=== PATIENT | female | born 2005 | race Caucasian/White ===

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

== ENCOUNTER 2024-01-19 14:28 | Emergency (ER) | payer BC, SELFPAY ==
[2024-01-19] VITALS (26 sets, daily range): BP systolic 110–173; BP diastolic 63–115; PULSE 75–115; RESP 11–22; TEMP 36.3; O2SAT 96–100
--- NOTE | 2024-01-19 14:29 | ED.NAVMDI ---
HPI - Nausea/Vomiting/Diarrhea General Chief complaint: Nausea/Vomiting/Diarrhea Stated complaint: extreme nausea Time Seen by Provider: 01/19/24 14:29 Source: patient Mode of arrival: ambulatory Limitations: no limitations History of Present Illness HPI Narrative: Ck is a 18-year-old female patient presenting to the clinic with complaints of chronic nausea for the past 8 months. Reports the nausea has gotten worse over the last 3 days and she is now complaining of dizziness. She denies any shortness of breath, chest pain, or abdominal pain at this time. Had an abdominal ultrasound on December 08 and it was negative for any abnormalities. Denies any recreational drug use. Related Data Allergies Allergy/AdvReac Type Severity Reaction Status Date / Time No Known Allergies Allergy Mild Verified 01/19/24 14:41 Review of Systems Review of Systems: Pertinent positives per HPI. Patient denies any fever, chills, rash, headache, visual changes, cough, runny nose, sore throat, shortness of breath, chest pain, palpitations, vomiting, diarrhea, constipation, abdominal pain, or any urinary issues. [facility] Past Medical History Medical History Encounter for immunization (07/23/19) Osteomyelitis, unspecified PANDAS (pediatric autoimmune neuropsychiatric disease associated with streptococcal infection) Panic disorder without agoraphobia Patellar tendonitis of left knee Primary dysmenorrhea Pustulosis palmaris et plantaris Strep pharyngitis Sunburn, blistering Family History Family History Other Family history of malignant neoplasm of breast Social History Social History Smoking status: Never smoker Second hand tobacco smoke exposure: No Alcohol intake: never Substance use: never Substance use type: does not use Do You Feel Safe in your Home?: Yes Lack of Transportation: No Lack of Food: Never True Current Housing: I Have Housing Concerned About Future Housing: No Difficulty Paying Gas/Electric Bills: No Difficulty Paying for Meds: No Currently Unemployed: No Education: High School Diploma/GED Living arrangements: with family Comments At the time of my signature, I reviewed and agree with the nursing past medical, surgical, social, and family history. There is no relevant family history pertinent to the patient complaint. Exam Narrative: General: Well-developed, well nourished, in no apparent distress Head: Normocephalic, atraumatic Eyes: Pupils equally round and reactive to light bilaterally, EOM intact, sclera and conjunctive clear, no discharge, lids normal Ears: TMs intact and clear, ear canals clear, no drainage, grossly hearing normal. Nose: Nares patent, clear discharge, no inflammation, no sinus tenderness. Mouth: Oropharynx mildly red without lesions or masses, good dentition, MMM. Neck: Supple, trachea midline, no enlargement of anterior or posterior cervical nodes, no thyroid masses or goiter palpable. Cardio: Regular rate and rhythm, s1 and s2 normal, no murmur appreciated. Resp: Clear to auscultation bilaterally anteriorly and posteriorly, no rhonchi, rales, wheezing or rubs Abdomen: Soft, pliable, bowel sounds present in all quadrants, non-tender to palpation, no organomegly, no CVAT tenderness. Course Course Emergency Course: Portions of this record may have been created with voice recognition software. Vital Signs Vital signs: Vital signs reviewed MDM - Nausea/Vomiting/Diarrhea MDM Narrative Medical decision making narrative: At the time of visit patient is resting comfortably on the exam table. Patient appears to be nontoxic. EKG: EKG shows normal sinus rhythm with heart rate of [address] beats per minute no ST elevation, depression, or T-wave inversion. Labs: CBC shows white blood
[2024-01-19 14:56] LABS: Appearance Urine Clear (Clear); Bilirubin Urine Negative (Negative); Blood Urine Negative (Negative); Color Urine Yellow (Yellow); Glucose Urine UA Negative (Negative); Ketones Urine 2+ mg/dL (Negative); Leukocyte Esterase Ur Negative LEU/UL (Negative); Nitrate Urine Negative (Negative); Protein Urine Negative (Negative); Specific Grav Ur 1.013 (1.001-1.035); pH Urine 6.5 (5.0-9.0)
--- NOTE | 2024-01-19 14:58 | ECG_ITS ---
SEE SCANNED COPY FOR CONFIRMED REPORT MTDD
[2024-01-19 15:08] LABS: Add Urine Microscopic? NO
[2024-01-19] MEDS: PROMETHAZINE HCL 25 MG/ML AMPUL 12.5 MG IV PUSH (15:12)
[2024-01-19] MEDS: SODIUM CHLORIDE 0.9% IV 1,000 ML 999 ML IV CONT ×2 (15:12→17:17)
[2024-01-19 15:16] LABS: Basophils Absolute Auto 0.1 K/mm3 (0.0-0.1); Basophils Percent Auto 0.5 % (0.2-1.2); Eosinophils Absolute Auto 0.1 K/mm3 (0-0.3); Eosinophils Percent Auto 0.5 % (0-4.4); Hematocrit 45.2 % (37.0-47.0); Hemoglobin 15.4 g/dL (12.0-15.0); Immature Granulocyte Absolute 0.02 K/mm3 (0.00-0.031); Immature Granulocyte Percent A 0.2 % (0-0.5); Lymphocytes Absolute Auto 2.23 K/mm3 (0.9-3.2); Lymphocytes Percent Auto 22.2 % (18.3-44.2); Mean Corpuscular HGB Conc 34.1 g/dl (32-36); Mean Corpuscular Hemoglobin 30.5 pg (26-34); Mean Corpuscular Volume 89.5 fl (80-100); Mean Platelet Volume 10.5 fl (7.4-10.4); Monocytes Absolute Auto 0.8 K/mm3 (0.1-0.6); Monocytes Percent Auto 8.1 % (2.6-8.5); Neutrophils Absolute Auto 6.9 K/mm3 (1.3-6.7); Neutrophils Percent Auto 68.5 % (45.5-73.1); Platelet Count Result 389 k/mm3 (150-375); Red Blood Count 5.05 M/mm3 (4.2-5.4); Red Cell Distribution Width 12.5 % (11.5-14.5); White Blood Count 10.1 K/mm3 (4.5-10.0)
[2024-01-19 15:24] LABS: Alanine Aminotransferase 43 U/L (6-35); Albumin Level 5.1 g/dL (3.7-5.6); Alkaline Phosphatase 66 U/L (45-116); Anion Gap 11 mmol/L (4-12); Aspartate Amino Transferase 32 U/L (14-36); Bilirubin,Total 0.7 mg/dL (0.2-1.3); Blood Urea Nitrogen 7 mg/dL (8-21); Calcium 10.2 mg/dL (8.9-10.7); Carbon Dioxide 25 mmol/L (22-30); Chloride 102 mmol/L (98-107); Estimated CRCL calculation 155 ml/min; Estimated Glomerular Filt Rate > 60; Glucose 112 mg/dL (65-110); Magnesium 1.9 mg/dL (1.6-2.3); Potassium 3.9 mmol/L (3.4-5.0); Sodium 138 mmol/L (134-143)
[2024-01-19 15:37] LABS: Troponin I < 0.012 ng/mL (0.000-0.034)
[2024-01-19 15:39] LABS: Strep Group A RT-PCR NOT DETECTED (Negative)
[2024-01-19] MEDS: METOCLOPRAMIDE HCL INJ 10 MG/2 ML VIAL IV PUSH (17:17)
== END 2024-01-19 18:50 | disposition home or self-care (01) ==
PROVIDERS: Emergency Provider Nurse Practitioner Family; PCP Family Medicine
DX: R11.0 Nausea (principal); R42 Dizziness and giddiness
CPT/HCPCS: 36415; 80053; 81003; 81025; 83735; 84443; 84484; 85025; 87651; 93005; 96361; 96374; 96375; 99284; J2550; J2765; J7030

== ENCOUNTER 2024-02-11 09:42 | Outpatient (CLI) | payer BC, SELFPAY ==
--- NOTE | ~2024-02-11 | NM_ITS ---
EXAMINATION: NM hepatobiliary wo pharm DATE: 02/11/2024 12:25 INDICATION: Abdominal pain COMPARISON: None. TECHNIQUE: 5.28 mCi Tc-99m mebrofenin (Choletec) was administered intravenously. Scintigraphic image s of the abdomen were obtained for one hour. At the 1 hour time point, the patient drank 8 oz Ensure, and imaging was continued for 60 minutes. Gallbladder ejection fraction was calculated by the techno logist. FINDINGS: There is normal clearance of radiotracer from the blood pool. There is homogeneous tracer u ptake by the liver. Activity progresses to the bowel and gallbladder. The gallbladder ejection fract ion (GBEF) is 53%. Note that with this technique, normal GBEF >= 33%. IMPRESSION: 1. Normal hepatobiliary scan. Reviewed, dictated and finalized at location A.
== END 2024-02-11 09:43 | disposition home or self-care (01) ==
LOC: ANHIMG 09:43
PROVIDERS: PCP Family Medicine; Visit Provider Nurse Practitioner
DX: R10.9 Unspecified abdominal pain (principal); R11.0 Nausea
CPT/HCPCS: 78226; A9537

== ENCOUNTER 2024-04-10 01:27 | Day surgery (SDC) | payer BC, SELFPAY ==
[2024-03-25 14:35] VITALS: BMI 38.2
[2024-04-10 09:10] VITALS: BP 162/100; PULSE 115; RESP 17; TEMP 36.3; O2SAT 99; BMI 36.4
[2024-04-10] MEDS: LACTATED RINGERS 1,000 ML 150 ML IV CONT (09:21)
--- NOTE | 2024-04-10 09:34 | P.PNAN_ITS ---
Anes - Initial Pre Proc Eval Procedure: Operation Date: 04/10/24 10:30 Proposed Procedures p Esophagogastroduodenoscopy - Toribio Arias MD Date/Time: 04/10/24 09:34 Surgeon: Toribio Arias MD Pre Op Diagnosis: Unspecified abdominal pain, nausea Patient Data Age: 18 Gender: F Height: 1.75 m Weight: 112 kg Last Vital Signs Temp 97.4 F L 04/10/24 09:10 Pulse 115 H 04/10/24 09:10 Resp 17 04/10/24 09:10 BP 162/100 H 04/10/24 09:10 Pulse Ox 99 04/10/24 09:10 O2 Del Method Room Air 04/10/24 09:10 Allergies Allergy/AdvReac Type Severity Reaction Status Date / Time No Known Allergies Allergy Mild Verified 04/10/24 09:09 Home Medications Medication Instructions Recorded Confirmed Type prochlorperazine 25 mg rectal 25 mg RECTAL Q12H PRN nausea and 01/30/24 04/10/24 Rx suppository (Compazine) vomiting #12 ea norethindrone acetate 1 mg-ethinyl 1 tablet PO DAILY #63 tabs 03/03/24 04/10/24 Rx estradiol 20 mcg tablet (Loestrin) omeprazole 40 mg capsule,delayed 40 mg PO DAILY #30 caps 03/03/24 04/10/24 Rx release Patient hx anesthesia problems: none Family hx anesthesia problems: none Results Review: All pre-operative results and documents have been reviewed as part of the pre- operative evaluation. [facility] Past Medical History Medical History Encounter for immunization (07/23/19) Osteomyelitis, unspecified PANDAS (pediatric autoimmune neuropsychiatric disease associated with streptococcal infection) Panic disorder without agoraphobia Patellar tendonitis of left knee Primary dysmenorrhea Pustulosis palmaris et plantaris Strep pharyngitis Sunburn, blistering Family History Family History Other Family history of malignant neoplasm of breast Social History Social History Smoking status: Never smoker Second hand tobacco smoke exposure: No Alcohol intake: current Substance use: never Substance use type: does not use Do You Feel Safe in your Home?: Yes Lack of Transportation: No Lack of Food: Never True Current Housing: I Have Housing Concerned About Future Housing: No Difficulty Paying Gas/Electric Bills: No Difficulty Paying for Meds: No Currently Unemployed: No Education: High School Diploma/GED Living arrangements: with family Spiritual care concerns: No Anes - Eval Final PreProcedure Day of Procedure 04/10/24 09:34 Patient weight: obese Heart: regular rate and rhythm Lungs: clear to auscultation Airway: Mallampati scale class II Neurological: alert and oriented Last oral intake: >/= 8 hours ASA classification: II Emergent: no Anesthetic plan: proceed Anesthesia type and monitoring: general GIVS and standard monitoring Results Review: All pre-operative results and documents have been reviewed as part of the pre- operative evaluation. Informed Consent: The patient's anesthetic plan and its attendant risks and benefits were discussed with the patient/family/POA. Questions were solicited and answers provided to the satisfaction of the patient/f
--- NOTE | 2024-04-10 09:39 | PM.HPGS ---
History of Present Illness History of Present Illness Consent: Risks, benefits, and alternatives have been discussed and questions answered. Patient agrees to proceed with procedure. Chief complaint: Unspecified abdominal pain, nausea Narrative: Ck Phillips is a 18 year old female here with nausea for 1 year, ultrasound and hida scan normal, never had egd, using omeprazole. Review of Systems Review of Systems: All systems reviewed & are unremarkable except as noted in HPI and below PMFSH Past Medical History Medical History Encounter for immunization (07/23/19) Osteomyelitis, unspecified PANDAS (pediatric autoimmune neuropsychiatric disease associated with streptococcal infection) Panic disorder without agoraphobia Patellar tendonitis of left knee Primary dysmenorrhea Pustulosis palmaris et plantaris Strep pharyngitis Sunburn, blistering Family History Family History Other Family history of malignant neoplasm of breast Social History Social History Smoking status: Never smoker Second hand tobacco smoke exposure: No Alcohol intake: current Substance use: never Substance use type: does not use Do You Feel Safe in your Home?: Yes Lack of Transportation: No Lack of Food: Never True Current Housing: I Have Housing Concerned About Future Housing: No Difficulty Paying Gas/Electric Bills: No Difficulty Paying for Meds: No Currently Unemployed: No Education: High School Diploma/GED Living arrangements: with family Spiritual care concerns: No Meds Home Medications and Allergies Home Medications Medication Instructions Recorded Confirmed Type prochlorperazine 25 mg rectal 25 mg RECTAL Q12H PRN nausea and 01/30/24 04/10/24 Rx suppository (Compazine) vomiting #12 ea norethindrone acetate 1 mg-ethinyl 1 tablet PO DAILY #63 tabs 03/03/24 04/10/24 Rx estradiol 20 mcg tablet (Loestrin) omeprazole 40 mg capsule,delayed 40 mg PO DAILY #30 caps 03/03/24 04/10/24 Rx release Allergies Allergy/AdvReac Type Severity Reaction Status Date / Time No Known Allergies Allergy Mild Verified 04/10/24 09:09 Vital Signs Vital Signs - 24 hr 04/10/24 09:10 Temperature 97.4 F L Pulse Rate 115 H Respiratory Rate 17 Blood Pressure 162/100 H Pulse Oximetry 99 Oxygen Delivery Room Air Exam Const: General: comfortable and no acute distress HENMT: Face/Nose/Sinus: Normal nares present Eyes: General: appearance normal, both eyes and all related structures Neck: Neck: no JVD Resp: Auscultation: clear to auscultation bilaterally Cardio: Rate: regular rate Rhythm: regular rhythm GI: Inspection: non-distended GI Palp: Yes Soft to palpation Skin: General skin exam: normal color Neuro: General: gait normal Speech: normal speech Extrem: General: normal to inspection Psych: Mental Status: mental status grossly normal Assessment and Plan Assessment and plan (1) Nausea: Code(s): R11.0 - Nausea Status: Acute Assessment and Plan: egd with bx
[2024-04-10 09:46] VITALS: BP 102/50; PULSE 73; RESP 20; O2SAT 96
[2024-04-10 09:56] VITALS: BP 99/55; PULSE 72; RESP 21; O2SAT 97
[2024-04-10 10:06] VITALS: BP 123/82; PULSE 77; RESP 15; O2SAT 97
== END 2024-04-10 10:13 | disposition home or self-care (01) ==
PROVIDERS: PCP Family Medicine; Referring Provider Nurse Practitioner; Visit Provider Internal Medicine Gastroenterology
PROC: 0DJ08ZZ Inspection of Upper Intestinal Tract, Via Natural or Artificial Opening Endoscopic (ICD-10-PCS; CPT 43235; principal; 2024-04-10 10:30)
DX: K29.50 Unspecified chronic gastritis without bleeding (principal); D89.89 Other specified disorders involving the immune mechanism, not elsewhere classified; F41.0 Panic disorder [episodic paroxysmal anxiety]; Z80.3 Family history of malignant neoplasm of breast
CPT/HCPCS: 43239; 88305; J2704; J7120

== ENCOUNTER 2024-05-31 18:47 | Emergency (ER) | payer BC, SELFPAY ==
[2024-05-31 18:50] VITALS: BP 151/104; PULSE 130; RESP 20; TEMP 36.6; O2SAT 100
--- NOTE | 2024-05-31 19:52 | PC.NURSE ---
Pt's family member ambulated to front clerk from outside and stated the pt has very high anxiety and doesn't like watching people getting sick in the waiting room, and that she has decided to leave.
== END 2024-05-31 23:02 | disposition left against medical advice (07) ==
LOC: ANHED 19:30
PROVIDERS: PCP Family Medicine
DX: R31.9 Hematuria, unspecified (principal)
CPT/HCPCS: 99199

== ENCOUNTER 2024-07-03 09:22 | Outpatient (CLI) | payer BC, SELFPAY ==
[2024-07-03 14:30] LABS: Erythrocyte Sedimentation Rate 11 mm/hr (0-20)
[2024-07-03 14:34] LABS: CRP < 0.5 mg/dL (<1.0)
[2024-07-03 15:00] LABS: Hemoglobin A1C 5.2 % (<5.7)
[2024-07-04 08:18] LABS: DHEA-Sulfate 515 mcg/dL (44-286); Prolactin 11.8 ng/mL
[2024-07-06 19:29] LABS: Almond (F20) IgE <0.10 kU/L; Cashew Nut (F202) IgE <0.10 kU/L; Cashew Nut (F202) IgE Class 0; Codfish (F3) IgE <0.10 kU/L; Codfish (F3) IgE Class 0; Cow's Milk (F2) IgE <0.10 kU/L; Cow's Milk (F2) IgE Class 0; Egg White (F1) IgE <0.10 kU/L; Egg White (F1) IgE Class 0; Hazelnut (F17) IgE <0.10 kU/L; Hazelnut (F17) IgE Class 0; Peanut (F13) IgE <0.10 kU/L; Peanut (F13) IgE Class 0; Salmon (F41) IgE <0.10 kU/L; Salmon (F41) IgE Class 0; Scallop (F338) IgE <0.10 kU/L; Scallop (F338) IgE Class 0; Sesame Seed <0.10 kU/L; Shrimp (F24) IgE 0.88 kU/L; Soybean (F14) IgE <0.10 kU/L; Soybean (F14) IgE Class 0; Tuna (F40) <0.10 kU/L; Tuna (F40) Class 0; Walnut (F256) IgE <0.10 kU/L; Walnut (F256) IgE Class 0; Wheat (F4) IgE <0.10 kU/L; Wheat (F4) IgE Class 0
[2024-07-07 04:49] LABS: Insulin Level Total 16.9 uIU/mL
[2024-07-08 01:39] LABS: Testosterone Total 28 ng/dL (2-45)
[2024-07-08 02:14] LABS: Immunoglobulin A 62 mg/dL (47-310); TTG IGA AB <1.0 U/mL
== END 2024-07-03 09:23 | disposition home or self-care (01) ==
PROVIDERS: Nurse Practitioner; PCP Family Medicine; Visit Provider Nurse Practitioner Women's Health
DX: R11.0 Nausea (principal); R10.9 Unspecified abdominal pain; R63.4 Abnormal weight loss; K58.0 Irritable bowel syndrome with diarrhea
CPT/HCPCS: 36415; 82627; 82784; 83036; 83498; 83525; 84146; 84403; 84439; 84443; 85652; 86003; 86140; 86364